=== PATIENT | female | born 1980 | race Two or more races ===

== ENCOUNTER 2017-09-02 02:10 | Emergency (ER) | payer OTHER ==
[~2017-09-02] VITALS: Ht 170.2 cm; Wt 63.5 kg
[~2017-09-02 02:10] MED LIST: CIPRO I.V.400 MG/201 IV; CIPRO500 MG PO; HIGH POTENCY I134 MG PO; PERCOCET 5-3251 EACH PO; PRENATABS RX T1 EACH PO; TRAM1TAB98 PO; URIN D.S. TABLE1 TAB PO; ZANTAC150 M3 PO
[2017-09-02] MEDS ORDERED: LEVSIN/SL0.125 MG SL (08:15)
[2017-09-02] MEDS ORDERED: PEPCID40 MG PO ×2 (08:15→08:16)
== END 2017-09-02 08:24 | disposition home or self-care (01) ==
LOC: ER 02:10
DX: R10.12 Left upper quadrant pain (principal)

== ENCOUNTER 2017-11-08 08:05 | Emergency (ER) | payer OTHER ==
[~2017-11-08] VITALS: Ht 170.2 cm; Wt 63.5 kg
[~2017-11-08 08:05] MED LIST changes: +LEVSIN/SL0.125 MG SL; +PEPCID40 MG PO
[2017-11-08] MEDS ORDERED: IMODIUM A-D2 M2 (08:25)
== END 2017-11-08 16:08 | disposition home or self-care (01) ==
LOC: ER 08:05 → EMR PED 08:11 → ER 16:08
DX: K52.9 Noninfective gastroenteritis and colitis, unspecified (principal)

== ENCOUNTER 2017-11-13 10:17 | Emergency (ER) | payer OTHER ==
[~2017-11-13] VITALS: Ht 170.2 cm; Wt 63.5 kg
[~2017-11-13 10:17] MED LIST changes: +IMODIUM A-D2 M2
[2017-11-13] MEDS ORDERED: NASONEX17 GM (10:46)
[2017-11-13] MEDS ORDERED: SINGULAIR10 MG (10:46)
[2017-11-13] MEDS ORDERED: ZITHROMAX500 MG PO (12:45)
[2017-11-13] MEDS ORDERED: ULTRACET PO (12:45)
[2017-11-13] MEDS ORDERED: FLONASE ALLERG9.9 ML NASAL (12:45)
[2017-11-13] MEDS ORDERED: XYLOCAINE JELLY PO (12:45)
== END 2017-11-13 13:31 | disposition home or self-care (01) ==
LOC: ER 10:17
DX: J31.2 Chronic pharyngitis (principal); H66.92 Otitis media, unspecified, left ear; J32.0 Chronic maxillary sinusitis

== ENCOUNTER 2018-04-09 00:11 | Emergency (ER) | payer OTHER ==
[~2018-04-09] VITALS: Ht 170.2 cm; Wt 70.3 kg
[~2018-04-09 00:11] MED LIST changes: +FLONASE ALLERG9.9 ML NASAL; +NASONEX17 GM; +SINGULAIR10 MG; +ULTRACET PO; +XYLOCAINE JELLY PO; +ZITHROMAX500 MG PO
== END 2018-04-09 09:56 | disposition home or self-care (01) ==
LOC: ER 00:11
DX: R42 Dizziness and giddiness (principal)

== ENCOUNTER 2019-07-25 07:36 | Emergency (ER) | payer OTHER ==
[~2019-07-25] VITALS: Ht 170.2 cm; Wt 68.9 kg
== END 2019-07-25 20:25 | disposition home or self-care (01) ==
LOC: ER 07:36
DX: J11.1 Influenza due to unidentified influenza virus with other respiratory manifestations (principal); B96.0 Mycoplasma pneumoniae [M. pneumoniae] as the cause of diseases classified elsewhere

== ENCOUNTER 2020-01-01 10:02 | Day surgery (SDC) | payer OTHER | END 2020-01-01 18:00 | disposition home or self-care (01) | LOC: CIR.AMB 10:02 | PROVIDERS: ATTEND Specialist | DX: N84.0 Polyp of corpus uteri (principal); N84.1 Polyp of cervix uteri; Z20.828 Contact with and (suspected) exposure to other viral communicable diseases ==

== ENCOUNTER 2022-07-30 08:24 | Emergency (ER) | payer OTHER ==
[~2022-07-30] VITALS: Ht 170.2 cm; Wt 70.8 kg
[2022-07-30] MEDS ORDERED: TUSSIN DM SYRU118 ML PO (10:54)
[2022-07-30] MEDS ORDERED: ZITHROMAX500 MG PO (10:54)
== END 2022-07-30 11:12 | disposition home or self-care (01) ==
LOC: ER 08:24
DX: B34.9 Viral infection, unspecified (principal); Z88.0 Allergy status to penicillin; Z88.6 Allergy status to analgesic agent; Z20.822 Contact with and (suspected) exposure to COVID-19

== ENCOUNTER 2023-11-29 09:24 | Emergency (ER) | payer OTHER ==
[~2023-11-29] VITALS: Ht 170.2 cm; Wt 59.0 kg
[~2023-11-29 09:24] MED LIST changes: +TUSSIN DM SYRU118 ML PO
[2023-11-29] MEDS ORDERED: LIPITOR40 M1 PO (09:41)
[2023-11-29] MEDS ORDERED: MEPERIDINE HCL/PF 50 MG/ML VIAL IM STA (11:27)
[2023-11-29 12:09] LABS: HEMATOCRIT 42.5 % (36.0-45.00); HEMOGLOBIN 14.5 g/dL (12.0-15.00); MEAN CELL VOLUME 92.5 fL (80.00-100.00); MEAN CORPUSCULAR HEMOGLOBIN 31.5 pg (27.00-32.0); PLATELET COUNT 164 K/uL (150-450)
[2023-11-29 12:39] LABS: CALCIUM 9.2 mg/dL (8.5-10.1); CREATININE SERUM 0.66 mg/dL (0.55-1.02); GFR 96.85; POTASSIUM 3.33 mEq/L (3.5-5.1)
[2023-11-29 12:39] LABS: URINE APPEARANCE Cloudy; URINE BILIRRUBIN Small (NEGATIVE); URINE BLOOD Negative; URINE COLOR Dark Yellow; URINE GLUCOSE Negative (NEGATIVE); URINE KETONE 15 (NEGATIVE); URINE LEUKOCYTE Trace; URINE NITRATE Negative; URINE PROTEIN 30 (NEGATIVE)
[2023-11-29 12:43] LABS: URINE CAST 2.29 uL (0.0-1.40); URINE EPITHELIAL CELLS 80.3 uL (0.0-38.8)
[2023-11-29 13:01] LABS: URINE MUCUS MODERATE; URINE YEAST NEGATIVE /hpf
[2023-11-29 13:02] LABS: URINE BACTERIA > 9821.5 uL (0.0-1933)
== END 2023-11-29 15:21 | disposition home or self-care (01) ==
LOC: ER 09:25
PROVIDERS: General Practice
DX: R10.9 Unspecified abdominal pain (principal); K57.30 Diverticulosis of large intestine without perforation or abscess without bleeding; Z88.0 Allergy status to penicillin; Z88.6 Allergy status to analgesic agent